=== PATIENT | male | born 1940 | race African-American/Black ===

== ENCOUNTER 2023-03-06 05:00 | Day surgery (SDC) | payer OTHER ==
[2023-02-24 09:56] VITALS: BMI 26.6
[2023-03-06 09:36] VITALS: TEMP 97.8
[2023-03-06 09:47] VITALS: RESP 18
[2023-03-06 10:17] VITALS: PULSE 64
[2023-03-06 10:19] VITALS: BP 149/63
== END 2023-03-06 10:21 | disposition home or self-care (01) ==
LOC: JASU-ENDO 05:00
PROVIDERS: ATTEND Internal Medicine Gastroenterology
PROC: 0DBL8ZX Excision of Transverse Colon, Via Natural or Artificial Opening Endoscopic, Diagnostic (ICD-10-PCS; 2023-03-06)
PROC: 3E0H8KZ Introduction of Other Diagnostic Substance into Lower GI, Via Natural or Artificial Opening Endoscopic (ICD-10-PCS; 2023-03-06)
PROC: 0DBH8ZX Excision of Cecum, Via Natural or Artificial Opening Endoscopic, Diagnostic (ICD-10-PCS; principal; 2023-03-06 08:45)
DX: Z12.11 Encounter for screening for malignant neoplasm of colon (principal); D12.0 Benign neoplasm of cecum; D12.3 Benign neoplasm of transverse colon; K64.8 Other hemorrhoids; K63.89 Other specified diseases of intestine
CPT/HCPCS: 82962; 88305-TC

== ENCOUNTER 2023-05-12 03:44 | Day surgery (SDC) | payer OTHER ==
[2023-05-08 12:27] VITALS: BMI 25.4
[2023-05-12 06:36] VITALS: RESP 20; TEMP 97
[2023-05-12] MEDS ORDERED: MIDAZOLAM HCL 2 MG/2 ML SINGLE DOSE VIAL ONE (07:39)
[2023-05-12 09:31] VITALS: BP 126/71; PULSE 68
== END 2023-05-12 09:31 | disposition home or self-care (01) ==
LOC: JASU-SURG 03:44
PROVIDERS: ATTEND Urology
PROC: 0TF3XZZ Fragmentation in Right Kidney Pelvis, External Approach (ICD-10-PCS; principal; 2023-05-12 08:00)
DX: N20.0 Calculus of kidney (principal)
CPT/HCPCS: 82962